=== PATIENT | female | born 1980 | race African-American/Black ===

== ENCOUNTER 2018-10-04 11:21 | Emergency (ER) | payer SELFPAY ==
[~2018-10-04] VITALS: Ht 154.9 cm; Wt 54.4 kg
[2018-10-04 11:58] VITALS: BP 115/62
== END 2018-10-04 14:36 | disposition home or self-care (01) ==
LOC: ER 11:21
DX: S00.83XA Contusion of other part of head, initial encounter (principal); F17.210 Nicotine dependence, cigarettes, uncomplicated; V49.59XA Passenger injured in collision with other motor vehicles in traffic accident, initial encounter; Y93.89 Activity, other specified; Y99.8 Other external cause status; Y92.410 Unspecified street and highway as the place of occurrence of the external cause

== ENCOUNTER 2019-01-19 13:43 | Emergency (ER) | payer SELFPAY ==
[~2019-01-19] VITALS: Ht 152.4 cm; Wt 54.4 kg
[2019-01-19 14:29] VITALS: BP 132/75
[2019-01-19] MEDS ORDERED: IBUPROFEN 800 MG TAB PO ONE (15:00)
== END 2019-01-19 15:51 | disposition home or self-care (01) ==
LOC: ER 13:47
DX: S92.512A Displaced fracture of proximal phalanx of left lesser toe(s), initial encounter for closed fracture (principal); F17.210 Nicotine dependence, cigarettes, uncomplicated; X58.XXXA Exposure to other specified factors, initial encounter; Y93.89 Activity, other specified; Y92.89 Other specified places as the place of occurrence of the external cause; Y99.8 Other external cause status
CPT/HCPCS: 28660; 73630; 73660